=== PATIENT | male | born 1955 | race Caucasian/White ===

== ENCOUNTER 2018-06-27 07:56 | Day surgery (SDC) | payer MEDICAID ==
[~2018-06-27] VITALS: Ht 182.9 cm; Wt 65.7 kg
[~2018-06-27 07:56] MED LIST: HYDR-569 PO; UNABLE TO OBTAIN
[2018-06-27] MEDS ORDERED: NO HOME MEDS (08:44)
[2018-06-27 09:17] VITALS: BP 128/88
[2018-06-27 09:26] LABS: BASOPHILS % (AUTO) 0.4 % (0-1); EOSINOPHILS # (AUTO) 0.4 X10'3 (0-0.9); EOSINOPHILS % (AUTO) 5.9 % (0-6); HEMATOCRIT 45.5 % (42.0-52.0); HEMOGLOBIN 15.9 g/dl (14.0-17.9); LYMPHOCYTES # (AUTO) 1.4 X10'3 (1.1-4.8); LYMPHOCYTES % (AUTO) 20.9 % (21-51); MEAN CORPUSCULAR HEMOGLOBIN 34.3 PG (27.0-31.0); MEAN CORPUSCULAR HGB CONC 34.9 % (33.0-36.5); MEAN CORPUSCULAR VOLUME 98.3 FL (78-98); MONOCYTES # (AUTO) 0.6 X10'3 (0-0.9); MONOCYTES % (AUTO) 8.9 % (2-12); NEUTROPHILS # (AUTO) 4.4 X10'3 (1.8-7.7); NEUTROPHILS % (AUTO) 63.9 % (42-75); PLATELET COUNT 238 X10'3 (140-440); RED BLOOD COUNT 4.63 X10'6 (4.70-6.10); RED CELL DISTRIBUTION WIDTH 14.9 % (11.5-14.5); WHITE BLOOD COUNT 6.9 X10'3 (4.5-11.0)
[2018-06-27] MEDS ORDERED: normal saline 1000ml 1,000 ML IV SCH (09:45)
[2018-06-27 10:00] LABS: PROTHROMBIN TIME 10.4 SECONDS (9.0-12.0)
[2018-06-27] MEDS ORDERED: fentaNYL/PF 50MCG/1 ML 2ML syringe ONE (10:44)
[2018-06-27] MEDS ORDERED: midazolam 2 mg/2 ml injection ONE (10:44)
[2018-06-27] MEDS ORDERED: fentaNYL/PF 50MCG/1 ML 2ML syringe IV PRN (10:45)
[2018-06-27] MEDS ORDERED: midazolam 2 mg/2 ml injection IV PRN (10:45)
[2018-06-27 10:57] VITALS: BP 132/72
[2018-06-27 11:02] VITALS: BP 133/72
[2018-06-27 11:07] VITALS: BP 133/72
== END 2018-06-27 11:45 | disposition home or self-care (01) ==
LOC: SSTAY O 07:56
PROVIDERS: ATTEND Radiology Vascular & Interventional Radiology
DX: R91.1 Solitary pulmonary nodule (principal); J43.9 Emphysema, unspecified; G89.29 Other chronic pain; E11.40 Type 2 diabetes mellitus with diabetic neuropathy, unspecified; I10 Essential (primary) hypertension; F17.210 Nicotine dependence, cigarettes, uncomplicated; Z72.89 Other problems related to lifestyle; Z90.49 Acquired absence of other specified parts of digestive tract; Z88.5 Allergy status to narcotic agent; Z79.891 Long term (current) use of opiate analgesic; Z98.890 Other specified postprocedural states; Z83.3 Family history of diabetes mellitus; Z82.49 Family history of ischemic heart disease and other diseases of the circulatory system
CPT/HCPCS: 36415; 71250; 85025; 85610; J2250; J3010; J7030

== ENCOUNTER 2025-10-11 21:26 | Inpatient (IN) | payer MEDICARE, MEDICAID ==
[~2025-10-11] VITALS: Ht 182.9 cm; Wt 58.4 kg
[~2025-10-11 21:26] MED LIST changes: -HYDR-569 PO; +NO HOME MEDS; -UNABLE TO OBTAIN
[2025-10-11 21:28] VITALS: PULSE 115; RESP 22; O2SAT 92
--- NOTE | 2025-10-11 22:02 | Physician Documentation ---
History of Present Illness ~ Chief Complaint: Shortness of Breath Stated Complaint: SOB Time Seen by MD: 22:01 Primary Medical Doctor: Cathy Kelly MD HPI 70-year-old male, history of COPD, presenting with shortness of breath The patient tells me he has a history of COPD. He uses an inhaler at home. He is on chronic oxygen, normally uses 2 L at baseline. He reports over the past couple of days he has had increased shortness of breath. He has noticed that his oxygen levels are low and has had increase his oxygen up to 5 L, but it was not really helping. He was not able to really walk around today due to shortness of breath. He does have an increased cough that is nonproductive. No fevers. No chest pain. No abdominal symptoms. No leg swelling. Per EMS, when they arrived he was in respiratory distress with oxygen saturations at 69% on his home oxygen. He was given breathing treatments en route Medication Reconciliation Allergies: Coded Allergies: morphine (Unverified Allergy, Intermediate, 10/11/25) codeine (Unverified Allergy, Unknown, 10/11/25) Scheduled PRN albuterol inhaler (Pro-Air Inhaler), 2 PUFFS INH Q4HPRN PRN for wheezing, (Reported) Discontinued Medications Home Med List (No Home Medications), (Reported) Discontinued Reason: Other Past Medical History Past Medical History: No Pertinent History Past Surgical History: noncontributory Patient History: FHx: diabetes mellitus MOTHER FHx: heart disease MOTHER Alcohol Use: Heavy Lives with: Family Lives In: Home Review of Systems Constitutional: Denies: fever Respiratory: Reports: cough, shortness of breath Physical Exam Vital Signs: Temperature: 99.4, Source: Oral, Heart Rate: 115, Respiratory Rate: 22, BP: 124/74, Pulse Oximetry: 92, Weight: 58.400 Oxygen Flow Rate: 6.0 Physical Exam General: This is a thin middle-aged man, not in acute distress HEENT: Atraumatic, oropharynx appears dry Heart: Tachycardic, appears regular, appears sinus rhythm on the monitor Lungs: Diminished breath sounds bilateral with expiratory wheezes diffusely and a prolonged expiratory phase. Oxygen saturations 86-88%, he is on 5 L nasal cannula although the nasal cannula was not in his nose Abdomen: Soft, nondistended, nontender all quadrants Extremities: Warm and well-perfused, no significant edema Neuro: Alert and oriented Psychiatric: Calm and cooperative with exam Progress Results/Orders Results/Orders Orders - FABIANA KIMBROUGH MD Covid19 Binax Poc Result Entry (10/11/25 22:08) Chest,Two Views (10/11/25 22:08) Page Hospitalist (10/11/25 23:02) Abg (Arterial Blood Gas) (10/11/25 ) Completed Orders - FABIANA KIMBROUGH MD Chest,Two Views (10/11/25 22:08) Electrocardiogram (10/11/25 22:09) Cbc/Diff (10/11/25 22:09) CMP (10/11/25 22:09) PBNP (10/11/25 22:09) Methylprednisolone Sod Succ (Solumedrol (10/11/25 22:10) Ipratropium/Albuterol Nebule (Ipratrop/A (10/11/25 22:10) Hs Troponin I W Calculations (10/11/25 22:30) Ceftriaxone/[id number]-[id number] 1gm (Rocephin 1 (10/11/25 23:05) Azithromycin Tablet (Zithromax Tablet) (10/11/25 23:05) C-Reactive Protein (10/11/25 22:23) Hgb A1c (10/11/25 22:23) MG (10/11/25 22:23) Vital Signs 10/11/25 10/11/25 10/11/25 10/11/25 21:26 21:28 22:28 22:40 Temp 99.4 Pulse 111 115 98 87 Resp 24 B/P (MAP) 124/74 Pulse Ox 91 92 90 89 O2 Delivery Simple Mask* Nasal Cannula* Nasal Cannula* O2 Flow Rate 6.0 6 5 5 FiO2 50 40 40 10/11/25 10/11/25 10/11/25 22:46 23:00 23:30 Pulse 96 85 Resp 14 B/P (MAP) 131/58 (82) 117/65 (82) 114/63 (80) Pulse Ox 95 90 85 O2 Flow Rate 4.0 Laboratory Tests Test 10/11/25 22:23 White Blood Count 10.4 Red Blood Count 4.06 L Hemoglobin 12.7 L Hematocrit 38.8 L Mean Corpuscular Volume 95.5 Mean Corpuscular Hemoglobin 31.2 H Mean Corpuscular Hemoglobin Concent 32.6 L Red Cell Distribution Width 14.7 H Platelet Count 330 Mean Platelet Volume 7.4 Neutrophils (%) (Auto) 85.6 H Lymphocytes (%) (Auto) 4.6 L Monocytes (%) (Auto) 8.8 Eosinophils (%) (Auto) 0.9 Basophils (%) (Auto) 0.1 Neutrophils # (Auto) 8.9 H Lymphocytes # (Auto) 0.5 L Monocytes # (Auto) 0.9 Eosinophils # (Auto) 0.1 Basophils # (Auto) 0.0 CBC Comment Prothrombin Time 10.3 INR International Normalized Ratio 1.0 Activated Partial Thromboplast Time 28 D-Dimer 0.52 H D-Dimer Comment Coagulation Comments Sodium Level 142 Potassium Level 3.8 Chloride Level 98 L Carbon Dioxide Level 45.4 *H Anion Gap -1 L Blood Urea Nitrogen 12 Creatinine 0.39 L Estimated GFR/1.73 m2 > 90 BUN/Creatinine Ratio 30.8 H Glucose Level 156 H Hemoglobin A1c 5.6 Calcium Level 8.7 Magnesium Level 1.8 Total Bilirubin 0.2 Aspartate Amino Transf (AST/SGOT) 15 Alanine Aminotransferase (ALT/SGPT) 10 L Alkaline Phosphatase 72 Troponin I High Sensitivity 7 C-Reactive Protein 5.11 H Pro-B-Type Natriuretic Peptide 146 H Total Protein 7.2 Albumin 2.8 L Globulin 4.4 H Albumin/Globulin Ratio 0.6 L Procalcitonin < 0.05 Chemistry Comments EKG/XRAY/CT/US/VASC/MRI Chest X-Ray : Additional Comments I personally interpreted the x-ray, and it shows: No focal consolidation, pulmonary edema, or pneumothorax Consults/PCP Consults/PCP : Additional Comment Consult: I spoke to the internal medicine service, for admission in the hospital Medical Decision Making Additional information obtaine: other Findings Reviewed EMS report including oxygen saturations of 69% Heart Score: 2 Differential Dx:Considerations: Include: asthma, bronchitis, cardiogenic shock, CHF, COPD, dysrhythmia, myocardial infarction, pulmonary embolism, respiratory distress, sinusitis, upper resp. infection Additional Infomation The patient presents with increased shortness of breath with a history of COPD. Per his history and exam, this seems likely a COPD exacerbation. He was given steroids and breathing treatments. Chest x-ray without pneumonia. His testing is otherwise unremarkable except for an elevated CO2 level. Given his significant shortness of breath and hypoxia he will be admitted to the medicine service. Departure Impression: Primary Impression: Acute exacerbation of chronic obstructive airways disease Referrals: NO PRIMARY CARE PROVIDER (PCP) Signature Scribe Signature: sinai Attestation: FABIANA De Souza MD Oct 11, 2025 22:02
[2025-10-11 22:28] VITALS: PULSE 98; RESP 28; O2SAT 90
[2025-10-11] MEDS: ipratropium/albuterol 3ml nebule NEB ONE (22:28)
--- NOTE | 2025-10-11 22:29 | ELECTROCARDIOGRAPH REPORT ---
[facility] Test Date: 2025-10-11 Test Time: 22:26:52 Pat Name: MAG LUNA Department: [facility]-ER Patient ID: [id number] Room: [place] [address] Gender: M [employer] Programmer: : 1955 Requested By: FABIANA KIMBROUGH Order Number: [id number] Reading MD: Dr. JAJA Lima Measurements Intervals Evangeline Rate: 96 P: 81 MS: 125 QRS: 91 QRSD: 105 T: -75 QT: 468 QTc: 592 Interpretive Statements Sinus rhythm Right axis deviation RSR' in V1 or V2, probably normal variant Borderline T abnormalities, diffuse leads Prolonged QT interval Electronically Signed On 10-13-2025 15:17:[address] JAJA Lima Please click the below link to view image of tracing.
--- NOTE | 2025-10-11 22:34 | RADIOLOGY REPORT ---
CHEST RADIOGRAPH Indication: sob, cough, copd Technique: Frontal and lateral view of the chest was obtained Comparison: None FINDINGS: Lines and Tubes: None Lungs: Right lower lobe opacity may reflect atelectasis or mild pneumonia. COPD. Pleura: No effusion. No pneumothorax. Cardiomediastinal contours: Unremarkable Bones: Unremarkable IMPRESSION: 1. Right lower lobe opacity may reflect atelectasis or mild pneumonia.
[2025-10-11 22:39] LABS: MEAN PLATELET VOLUME 7.4 FL (7.4-10.4); RED CELL DISTRIBUTION WIDTH 14.7 % (11.5-14.5)
[2025-10-11 22:40] VITALS: PULSE 87; RESP 24; O2SAT 89
[2025-10-11 22:58] LABS: CREATININE 0.39 MG/DL (0.60-1.10); PRO BRAIN NATRIURETIC PEPTIDE 146 PG/ML (0-125); eCRCL 150 ML/MIN; eGFR > 90 ML/MIN
[2025-10-11 23:02] LABS: TOTAL CARBON DIOXIDE 45.4 MMOL/L (24-32)
[2025-10-11] MEDS ORDERED: magnesium sulf-water 4G/100mL 100 ML IV PRN (23:35)
[2025-10-11] MEDS ORDERED: magnesium Cl slow-release 64mg tablet PO PRN (23:35)
[2025-10-11] MEDS ORDERED: ondansetron/PF 4mg/2ml inj IV PRN (23:35)
[2025-10-11] MEDS ORDERED: HYDROcodone/acetaminophen 5mg/325mg tablet PO PRN (23:35)
[2025-10-11] MEDS ORDERED: potassium Cl 40MEQ/1/2NS 520ml 520 ML IV PRN (23:35)
[2025-10-11] MEDS ORDERED: albuterol 2.5 MG/3 ML nebule NEB PRN (23:35)
[2025-10-11] MEDS ORDERED: mag hydrox/Alum hydrox/simeth 30ml oral suspension PO PRN (23:35)
[2025-10-11] MEDS ORDERED: magnesium sulf-water 2g/50mL 50 ML IV PRN (23:35)
[2025-10-11] MEDS ORDERED: magnesium hydroxide 30ml (MOM) UD suspension PO PRN (23:35)
[2025-10-11] MEDS ORDERED: potassium Cl 20 mEq SR tablet PO PRN ×2 (23:35)
--- NOTE | 2025-10-11 23:48 | HISTORY AND PHYSICAL-Residence ---
History & Physical Providers to CC Resident Creating Document: JADA MURPHY, RES ~ History of Present Illness Primary Medical Doctor: Cathy Kelly MD Reason for Admit\Complaint: COPD exacerbation, prolonged QTC History of Present Illness This is a 70-year-old male with a history of hypertension, COPD, heavy and active tobacco use presents to the ER with a chief complaint of shortness of breath since this morning. Patient endorses increased cough, dyspnea, oxygen requirement and whitish phlegm. Patient endorses that he has about 90 pack-year smoking history and extensive history of COPD. He continues to smoke about three cigarettes a day although he has significantly cut down his smoking. Patient uses 2 L of oxygen at home at baseline, however this morning he felt extremely short of breath and required 5 L of oxygen and still was feeling short of breath, hence decided to come to the ED. During his ED stay his saturations were in the low 80s despite being on 5 L of oxygen. He denies any chest pain, swelling in the legs, abdominal pain, nausea, vomiting, diarrhea. He ambulates using a scooter or a walker and lives his sister. Patient endorses that he can walk up to 100 ft before he gets short breath. He currently uses some Ellipta inhaler and nebulizers at home. ED course: Patient received one dose of Solu-Medrol 125 mg and breathing treatments with DuoNebs. Chest x-ray showed right basilar opacity suspicious for pneumonia and COPD lungs. Patient is being admitted for management of COPD exacerbation and pneumonia. Allergies: Coded Allergies: morphine (Unverified Allergy, Intermediate, 10/11/25) codeine (Unverified Allergy, Unknown, 10/11/25) Home Medications Home Medications Active Reported No Home Medications (Home Med List) Each Past Medical History Past Medical History Hypertension, COPD, tobacco use Past Surgical History Surgical History Comment Hip surgery Family History Family History: FHx: diabetes mellitus MOTHER FHx: heart disease MOTHER Past Social History Social History Comment 90 pack-year smoking history (smoked about 2-3 packs of cigarettes for 30 years), occasional alcohol use, denies any drug use. Lives at home with sister. Does not remember details of PCP Alcohol Use: Heavy Lives with: Family Lives In: Home ROS ROS Constitutional: No fever, chills, dizziness, weakness, weight gain or loss Eyes: No pain, erythema, discharge, blurring of vision ENT: No sore throat, epistaxis, tinnitus Cardiovascular: Shortness of breath, wheezing, orthopnea No palpitations, syncope, lower extremity edema, paroxysmal nocturnal dyspnea Respiratory: Increased whitish sputum No hemoptysis Gastrointestinal: Normal appetite. No nausea, vomiting, diarrhea, constipation, hematemesis, abdominal pain, bloating, melena or fresh blood Genitourinary: No frequency, urgency, nocturia, hematuria or dysuria Musculoskeletal: No arthralgias or myalgias Integumentary: No change in skin, hair, nails. No swelling, bruising, abrasions Neurologic: No headache, neck pain, numbness or tingling of the extremities, weakness Psychiatric: No delusions, depression, loss of interest in normal activity or change in sleep pattern, hallucinations, suicidal ideations Endocrine: No fatigue, weakness, polydipsia, polyuria, change in appetite, heat or cold intolerance, sweating, dry skin Hematological: No bleeding, petechiae, bruising Allergies: No asthma or urticaria Constitutional: Denies: fever Respiratory: Reports: cough, shortness of breath Exam Vitals: Vital Signs Date Time Temp Pulse Resp B/P (MAP) Pulse Ox O2 Delivery O2 Flow Rate FiO2 10/11/25 22:46 22 131/58 (82) 95 4.0 10/11/25 22:40 87 Nasal Cannula* 40 10/11/25 21:26 99.4 General: General: Thin built, poor hygiene. Awake , alert, and oriented x4, resting comfortably in the bed, in no acute distress . HEENT: Atraumatic, normocephalic, EOMI, anicteric sclera B; pink conjunctiva; PERRLA, normal oropharynx, moist oral and nasal mucosa. Tympanic membrane , nose , throat clear. Neck: Trachea midline. Supple, full range of motion, no JVD, bruit , hepatojugular reflex , lymphadenopathy or masses, or other lesions Cardiac: Regular rhythm, regular rate no murmurs, rubs, or gallops. Normal S1 and S2, no S3 noticed. PMI is normal. Respiratory: Decreased breath sounds bilaterally, severe wheezing, tachypnea; crackles in the right lower lobe lung base. Chest wall is symmetric and without deformity. No signs of trauma. Chest wall is nontender. No signs of respiratory distress. Gastrointestinal: Abdomen symmetric, non-distended, soft, non-tender, normal bowel sounds x4 quadrant, normoactive, no hepatosplenomegaly , no masses , no bruit, no flank pain bilaterally. No voluntary guarding, rebound, or rigidity. No tenderness to percussion. No pulsatile masses. Equal femoral pulses. No Baker's sign or McBurney point tenderness. Back; no CVA tenderness bilaterally, no deformities. Neck and back are without deformity as well. No tenderness noted on palpation of the spinous processes. Spinous processes are midline. Cervical, thoracic, and lumbar paraspinal muscles are not tender and are without spasm. : normal external genitalia, without lesions, swelling, masses or tenderness. Musculoskeletal: Extremities, normal range of motion, non-tender, muscle strength 5/5 x 4. Negative Homans signs bilaterally on lower extremity. Distal pulses full symmetrical, no clubbing, cyanosis , edema. Neurological: Speech is clear, alert, and oriented x 4. No motor or sensory deficit, deep tendon reflexes normal, cerebellar intact. Cranial nerves II-XII intact. Psych: Alert and or appropriate, normal affect. Vascular: Good distal pulses, which are equal x4; capillary refill less than 2 seconds. Skin: Warm, dry, no pallor, no rash or petechiae. Diagnostic Data Last Recorded Lab Results: 10/11/25222210/11/252222 Advance Care Planning Advanced Care plannin - 30 Minutes (I spent a total of 17 minutes on reviewing various resuscitative measures/ ACP with the patient at the time of admission. The patient has decided on a full code status) Additional Plan Acute hypoxemic respiratory failure Acute on chronic COPD exacerbation Respiratory acidosis with compensatory metabolic alkalosis Community-acquired pneumonia, covering Gram-positive, Gram-negative and atypical organisms ? Lung mass Tachypnea with respiratory rate of 25, tachycardia with heart rate of 112 at admission. Chest x-ray shows Right lower lobe opacity may reflect atelectasis or mild pneumonia. Patient has extensive wheezing on auscultation ABG shows pCO2 of 67.8 with normal pH and compensated bicarb of 37.8 suggestive of chronic COPD. No leukocytosis/sirs criteria Follow up with the ESR, lactic acid, procalcitonin.CRP elevated at 5.11 Patient received one dose of Solu-Medrol 125 mg, ceftriaxone and Zithromax in the ED. Avoid Zithromax in view of prolonged QTC. Continue antibiotics ceftriaxone and doxycycline, steroids Solu-Medrol 40 mg q.6 hours and IV fluids NS at the rate of 100 mL/hour. RT evaluation and treatment. Breathing treatments with Duo nebs q.4 PRN and albuterol q.2h p.r.n Wells score low. D-dimer is slightly elevated at 0.52. Follow up with CTA chest to rule out PE. Gentle hydration for pneumonia with NS at the rate of 100 mL/hour. Patient underwent a left lower lobe mass biopsy, obtain pathology reports in the a.m. Prolonged QTC EKG shows corrected QTC of 592ms, Q-waves and T-wave inversions in multiple leads. Avoid macrolides including azithromycin, fluoroquinolones, Zofran, other QT prolonging antiarrhythmic, antipsychotic medications. Troponins are within normal limits, no chest pain Hypertension Currently normotensive. Continue home meds after med rec Mild normocytic normochromic anemia Moderate protein calorie malnutrition Continue monitoring CBC, ensure enlive t.i.d. Code Status: Full code DVT Prophylaxis: Heparin Analgesia/Sedation: Tylenol p.r.n. Lines/Tubes: PIV Gi Prophylaxis: None Nutrition: Regular diet PT: Yes Prognosis: Guarded Disposition: Admit to PCU with telemetry monitoring Jada Robertson MD Internal Medicine Resident PGY-2 Patient evaluated using HIPPA complaint AV device Agree with plan as discussed with the resident Brody Carballo MD Date of Service: Oct 11, 2025 Billing Provider: BRODY CARBALLO MD, DEEPIKA BANDI, RES Oct 11, 2025 23:48 BRODY CARBALLO MD Oct 12, 2025 04:51
[2025-10-11] MEDS: CefTRIAXone/D5W-Rocephin 1gm 50 ML IV ONE (23:58)
[2025-10-12] VITALS (13 sets, daily range): BP systolic 116–130; BP diastolic 59–74; PULSE 83–110; RESP 16–28; TEMP 97.3–98.4; O2SAT 88–95
[2025-10-12] MEDS: normal saline 1000ml 1,000 ML IV SCH (00:01)
[2025-10-12 00:11] LABS: ABG BASE EXCESS 10.0 mmol/L (-2.0-3.0); ABG HCO3 37.8 mmol/L (21.0-28.0); ABG OXYGEN SATURATION 88.6 % (94.0-98.0); ABG PCO2 (T) 67.8 mmHg (35.0-48.0); ABG PH (T) 7.365 (7.350-7.450); ABG PO2 (T) 57.4 mmHg (83.0-108.0); FCOHb 1.1 % (0.5-1.5); FHHb 11.2 % (0.0-5.0); FIO2 36.0 mmHg/%; FMetHb 0.3 % (0.0-1.5); FO2Hb 87.4 % (94.0-98.0); MODE NASAL CANNULA; PATIENT TEMPERATURE 37.2; TOTAL HEMOGLOBIN 12.8 G/dl (13.5-17.5)
[2025-10-12 00:12] LABS: APTT 28 SECONDS (22-32); INR 1.0 INR
[2025-10-12] MEDS ORDERED: ALBU8HFA INH (00:45)
[2025-10-12 01:34] LABS: MEAN PLATELET VOLUME 7.4 FL (7.4-10.4); RED CELL DISTRIBUTION WIDTH 14.8 % (11.5-14.5)
[2025-10-12 01:47] LABS: CHOL/HDL RATIO 2.6 (0.00-4.99); CREATININE 0.38 MG/DL (0.60-1.10); LDL CHOLESTEROL 73 MG/DL (50-100); eCRCL 154 ML/MIN; eGFR > 90 ML/MIN
[2025-10-12 01:52] LABS: TOTAL CARBON DIOXIDE 42.9 MMOL/L (24-32)
[2025-10-12] MEDS: methylPREDNISolone sod succ/PF 40mg inj. IV SCH (02:00)
[2025-10-12] MEDS: K and/or MAG REPLACEMENT MC SCH (07:47)
[2025-10-12] MEDS: doxycycline 100mg/NS 100mL PB 100 ML IV SCH (08:00)
[2025-10-12] MEDS: docusate sod 100mg capsule PO SCH (08:01)
[2025-10-12] MEDS: heparin, porcine 5000 units/ml vial SQ SCH (08:01)
[2025-10-12] MEDS: Ensure Enlive - 237ML PO SCH (08:09)
[2025-10-12] MEDS: nicotine 14mg patch - 24hr TD SCH (08:15)
--- NOTE | 2025-10-12 12:10 | PROGRESS NOTE ---
Daily Progress Note Providers to CC Today, less shortness of breath less cough ~ Central Line/PICC still needed: No Lloyd-Non Protocol Lloyd Indications Met/Not Met: F/C Indications Not Met Antibiotic Timeout Antibiotic Ordered?: Yes MRSA Education MRSA Education Provided to pt: Yes Subjective As above Objective Vital Signs Date Time Temp Pulse Resp B/P (MAP) Pulse Ox O2 Delivery O2 Flow Rate FiO2 10/12/25 08:00 20 91 Nasal Cannula 3.5 40 10/12/25 06:30 75 10/12/25 02:05 98.4 120/64 (82) Vital signs, stable ,afebrile. Pulse Oximetry reflects adequate oxygenation. 4 L oxygen nasal cannula General: well developed, well nourished. Awake , alert, and oriented x4, resting comfortably in the bed, in no acute distress . Skin: Warm, dry, no pallor, no rash or petechiae. HEENT: Atraumatic, normocephalic, EOMI, anicteric sclera B; pink conjunctiva; PERRLA, normal oropharynx, moist oral and nasal mucosa. Tympanic membrane , nose , throat clear. Neck: Trachea midline. Supple, full range of motion, no JVD, bruit , hepatojugular reflex , lymphadenopathy or masses, or other lesions Cardiac: Regular rhythm, regular rate no murmurs, rubs, or gallops. Normal S1 and S2, no S3 noticed. PMI is normal. Respiratory: Equal breath sounds bilaterally, no tachypnea; lungs clear to auscultation bilaterally, no wheezing ,rub or rales, or crackles. Chest wall is symmetric and without deformity. No signs of trauma. Chest wall is nontender. No signs of respiratory distress. Resonance is normal upon percussion bilaterally. Gastrointestinal: Abdomen symmetric, non-distended, soft, non-tender, normal bowel sounds x4 quadrant, normoactive, no hepatosplenomegaly , no masses , no bruit, no flank pain bilaterally. No voluntary guarding, rebound, or rigidity. No tenderness to percussion. No pulsatile masses. Equal femoral pulses. No Baker's sign or McBurney point tenderness. Back; no CVA tenderness bilaterally, no deformities. Neck and back are without deformity as well. No tenderness noted on palpation of the spinous processes. Spinous processes are midline. Cervical, thoracic, and lumbar paraspinal muscles are not tender and are without spasm. : normal external genitalia, without lesions, swelling, masses or tenderness. Musculoskeletal: Extremities, normal range of motion, non-tender, muscle strength 5/5 x 4. Negative Homans signs bilaterally on lower extremity. Distal pulses full symmetrical, no clubbing, cyanosis , edema. Neurological: Speech is clear, alert, and oriented x 4. No motor or sensory deficit, deep tendon reflexes normal, cerebellar intact. Cranial nerves II-XII intact. Psych: Alert and or appropriate, normal affect. Vascular: Good distal pulses, which are equal x4; capillary refill less than 2 seconds. Lymphatic, no lymphadenopathy. Result Diagram: 10/12/25 0106 10/12/25 0106 Coagulation Studies Laboratory Tests Test 10/11/25 22:23 Prothrombin Time 10.3 SECONDS (9.0-12.0) INR International Normalized Ratio 1.0 INR Activated Partial Thromboplast Time 28 SECONDS (22-32) D-Dimer 0.52 MG/L FEU (0-0.50) H D-Dimer Comment Coagulation Comments Problem\Assessment\Plan Plan Acute hypoxemic respiratory failure Acute on chronic COPD exacerbation Respiratory acidosis with compensatory metabolic alkalosis Community-acquired pneumonia, covering Gram-positive, Gram-negative and atypical organisms ? Lung mass Tachypnea with respiratory rate of 25, tachycardia with heart rate of 112 at admission. Chest x-ray shows Right lower lobe opacity may reflect atelectasis or mild pneumonia. Patient has extensive wheezing on auscultation ABG shows pCO2 of 67.8 with normal pH and compensated bicarb of 37.8 suggestive of chronic COPD. No leukocytosis/sirs criteria Follow up with the ESR, lactic acid, procalcitonin.CRP elevated at 5.11 Patient received one dose of Solu-Medrol 125 mg, ceftriaxone and Zithromax in the ED. Avoid Zithromax in view of prolonged QTC. Continue antibiotics ceftriaxone and doxycycline, steroids Solu-Medrol 40 mg q.6 hours and IV fluids NS at the rate of 100 mL/hour. RT evaluation and treatment. Breathing treatments with Duo nebs q.4 PRN and albuterol q.2h p.r.n Wells score low. D-dimer is slightly elevated at 0.52. Follow up with CTA chest to rule out PE. Gentle hydration for pneumonia with NS at the rate of 100 mL/hour. Patient underwent a left lower lobe mass biopsy, obtain pathology reports in the a.m. Prolonged QTC EKG shows corrected QTC of 592ms, Q-waves and T-wave inversions in multiple leads. Avoid macrolides including azithromycin, fluoroquinolones, Zofran, other QT prolonging antiarrhythmic, antipsychotic medications. Troponins are within normal limits, no chest pain Hypertension Currently normotensive. Continue home meds after med rec Mild normocytic normochromic anemia Moderate protein calorie malnutrition Continue monitoring CBC, ensure enlive t.i.d. Code Status: Full code DVT Prophylaxis: Heparin Analgesia/Sedation: Tylenol p.r.n. Lines/Tubes: PIV Gi Prophylaxis: None Nutrition: Regular diet PT: Yes Prognosis: Guarded Sepsis Screening Reassessment Date: Oct 12, 2025 Date of Service: Oct 12, 2025 Billing Provider: LIZA SOLIS MD Common Visit Codes: [id number] INP/OBS CARE(HIGH) LIZA SOLIS MD Oct 12, 2025 12:10
--- NOTE | 2025-10-12 13:28 | RADIOLOGY REPORT ---
Indication: sob Technique: CT axial images of the chest are obtained with intravenous contrast per CT angiogram protocol. Coronal and sagittal reformats were obtained. Radiation Dose Information: CTDI volume is 7 mGy. Dose-length product is 309 mGy*cm Comparison: None FINDINGS: No filling defect within the main left right pulmonary arteries. Segmental and subsegmental branches suboptimally characterized. The trachea is patent. Plugging of the bilateral lower lobe bronchi No pneumothorax. Pulmonary emphysematous changes. Right lower lobe airspace consolidationm left upper lobe lingular segment nodule solid density measuring 7 mm. Left Lower lobe airspace consolidation left lower lobe calcified nodule me asuring 8 mm. Heart normal in size. Coronary artery calcification disease. Right hilar lymph node measuring 1.7 cm. Subcarinal lymph node measuring 1.1 cm. No supraclavicular lymphadenopathy. Right axillary lymph nodes measuring up to 11 mm. Left axillary lymph nodes measuring up to 15 mm. No aggressive osseous process. [id number] thoracic degenerative disc disease. IMPRESSION: No evidence for Large pulmonary embolism. Bilateral lower lobe airspace consolidation. Plugging of the bilateral lower lobe bronchi which can be secondary to infection/pneumonia, aspiration. Left upper lobe lingular segment pulmonary nodule measuring 7 mm. Recommend follow-up per Fleischner society criteria. Pulmonary emphysematous changes. Mediastinal / hilar, axillary lymphadenopathy which can be secondary to infectious, inflammatory, neoplastic etiologies. Correlate clinically. Other findings as described.
[2025-10-12] MEDS: ipratropium/albuterol 3ml nebule NEB PRN (15:02)
[2025-10-12] MEDS: CefTRIAXone/D5W-Rocephin 1gm 50 ML IV SCH (22:29)
[2025-10-12] MEDS ORDERED: azithromycin/NS 500mg/250ml 250 ML IV SCH (23:00)
[2025-10-13] VITALS (11 sets, daily range): BP systolic 121–146; BP diastolic 62–87; PULSE 87–98; RESP 16–30; TEMP 97.8–98.3; O2SAT 89–96
[2025-10-13 06:28] LABS: MEAN PLATELET VOLUME 8.0 FL (7.4-10.4); RED CELL DISTRIBUTION WIDTH 14.9 % (11.5-14.5)
[2025-10-13 06:49] LABS: CREATININE 0.40 MG/DL (0.60-1.10); eCRCL 146 ML/MIN; eGFR > 90 ML/MIN
[2025-10-13 06:58] LABS: TOTAL CARBON DIOXIDE 40.7 MMOL/L (24-32)
[2025-10-13 10:19] LABS: ABG BASE EXCESS 12.2 mmol/L (-2.0-3.0); ABG HCO3 40.0 mmol/L (21.0-28.0); ABG OXYGEN SATURATION 86.6 % (94.0-98.0); ABG PCO2 (T) 69.1 mmHg (35.0-48.0); ABG PH (T) 7.380 (7.350-7.450); ABG PO2 (T) 52.8 mmHg (83.0-108.0); ALLEN'S TEST POSITIVE; FCOHb 1.1 % (0.5-1.5); FHHb 13.2 % (0.0-5.0); FIO2 36.0 mmHg/%; FLOW 4 L/min; FMetHb 0.3 % (0.0-1.5); FO2Hb 85.4 % (94.0-98.0); MODE NASAL CANNULA; PATIENT TEMPERATURE 36.8; TOTAL HEMOGLOBIN 12.0 G/dl (13.5-17.5)
--- NOTE | 2025-10-13 15:28 | CARDIOLOGY REPORT ---
APPROVED REPORT EXAM: Comprehensive 2D, Doppler, and color-flow Echocardiogram. Patient Location: 3009 Blood Pressure: 120/64 mmHg Heart Rate: 98 bpm Rhythm: NSR Indications SOB COPD Bed Bugs No director of surgery No previous echo 2D Dimensions LA Diam 4.2 cm IVSd 1.0 (0.7-1.1cm) LVDd 5.2 cm PWd 1.0 (0.7-1.1cm) IVSs 1.4 (0.8-1.2cm) LVDs 3.1 (2.5-4.0cm) Aortic Root(2D) 3.5 cm PWs 1.3 (0.8-1.2cm) LVOT Diameter 2.36 (1.8-2.4cm) LVEF(%) 69.3 (>50%) IVC 19.52 mm FS (%) 39.2 % SV 88.4 ml CO 9.4 L/min M-Mode Dimensions MV EPSS 0.7 (<0.5cm) Aortic Valve AoV Peak Marv. 172.2 cm/s AoV VTI 32.1 cm AO Peak GR. 11.9 mmHg AO Mean GR. 5 mmHg LVOT VTI 19.40 cm LVOT Peak Marv. 107.0 cm/s TERESA(VTI)/BSA 2.65 cm2/m2 TERESA (VTI) 2.65 cm2 AV DI 0.60 % Mitral Valve MV E Velocity 72.3 cm/s MV Peak Gr. 3 mmHg MV DECEL TIME 204 ms MV A Velocity 85.9 cm/s MV PHT 64 ms E/A Ratio 0.8 MVA (PHT) 3.44 cm2 MV VMax 85.7 cm/s TDI Medial E' P. V 10.90 cm/s E/Medial E' 6.6 Tricuspid Valve TR P. Velocity 235 cm/s RAP ESTIMATE 10 mmHg TR Peak Gr. 22 mmHg RVSP 32 mmHg Pulmonary Vein S1 Velocity 37.4 cm/s D2 Velocity 24.1 cm/s PVa Velocity 33.6 cm/s PVa Duration 68 msec LEFT VENTRICLE Normal LV size and wall thickness. Overall systolic function is normal. Overall LVEF is 65%. RIGHT VENTRICLE RV appears mildly dilated with normal contractility. RVSP is estimated at 32 mmHG. ATRIA Left atrium is mildly dilated. AORTIC VALVE Trileaflet AV appears sclerotic without stenosis. No insufficiency. MITRAL VALVE MV is thickened with mild annular calcification and no stenosis. Trace mitral regurgitation. TRICUSPID VALVE The tricuspid valve is normal in structure. Trace tricuspid regurgitation. PULMONIC VALVE The pulmonary valve is normal in structure. Trace pulmonic insufficiency. GREAT VESSELS The aortic root is normal in size. The IVC is normal in size and collapses >50% with inspiration. PERICARDIUM There is no pericardial effusion. Other Information Study Quality: Fair Conclusion Overall LVEF is 65%. Normal LV size and wall thickness. Overall systolic function is normal. RV appears mildly dilated with normal contractility. RVSP is estimated at 32 mmHG. Trileaflet AV appears sclerotic without stenosis. No insufficiency. Trace mitral regurgitation. Trace tricuspid regurgitation. Trace pulmonic insufficiency. There is no pericardial effusion.
--- NOTE | 2025-10-13 17:29 | PROGRESS NOTE ---
Daily Progress Note Providers to CC Chief complaint, continue shortness of breath cough mild improvement noticed ~ Central Line/PICC still needed: No Lloyd-Non Protocol Lloyd Indications Met/Not Met: F/C Indications Not Met Antibiotic Timeout Antibiotic Ordered?: Yes MRSA Education MRSA Education Provided to pt: Yes Subjective As above Objective Vital Signs Date Time Temp Pulse Resp B/P (MAP) Pulse Ox O2 Delivery O2 Flow Rate FiO2 10/13/25 15:00 98.1 94 22 133/68 (89) 92 Nasal Cannula 6.0 10/13/25 10:25 44 Vital signs, stable ,afebrile. Pulse Oximetry reflects adequate oxygenation. On 6 L oxygen nasal cannula General: well developed, well nourished. Awake , alert, and oriented x4, resting comfortably in the bed, in no acute distress . Skin: Warm, dry, no pallor, no rash or petechiae. HEENT: Atraumatic, normocephalic, EOMI, anicteric sclera B; pink conjunctiva; PERRLA, normal oropharynx, moist oral and nasal mucosa. Tympanic membrane , nose , throat clear. Neck: Trachea midline. Supple, full range of motion, no JVD, bruit , hepatojugular reflex , lymphadenopathy or masses, or other lesions Cardiac: Regular rhythm, regular rate no murmurs, rubs, or gallops. Normal S1 and S2, no S3 noticed. PMI is normal. Respiratory: Equal breath sounds bilaterally, no tachypnea; lungs clear to auscultation bilaterally, no wheezing ,rub or rales, or crackles. Chest wall is symmetric and without deformity. No signs of trauma. Chest wall is nontender. No signs of respiratory distress. Resonance is normal upon percussion bilaterally. Gastrointestinal: Abdomen symmetric, non-distended, soft, non-tender, normal bowel sounds x4 quadrant, normoactive, no hepatosplenomegaly , no masses , no bruit, no flank pain bilaterally. No voluntary guarding, rebound, or rigidity. No tenderness to percussion. No pulsatile masses. Equal femoral pulses. No Baker's sign or McBurney point tenderness. Back; no CVA tenderness bilaterally, no deformities. Neck and back are without deformity as well. No tenderness noted on palpation of the spinous processes. Spinous processes are midline. Cervical, thoracic, and lumbar paraspinal muscles are not tender and are without spasm. : normal external genitalia, without lesions, swelling, masses or tenderness. Musculoskeletal: Extremities, normal range of motion, non-tender, muscle strength 5/5 x 4. Negative Homans signs bilaterally on lower extremity. Distal pulses full symmetrical, no clubbing, cyanosis , edema. Neurological: Speech is clear, alert, and oriented x 4. No motor or sensory deficit, deep tendon reflexes normal, cerebellar intact. Cranial nerves II-XII intact. Psych: Alert and or appropriate, normal affect. Vascular: Good distal pulses, which are equal x4; capillary refill less than 2 seconds. Lymphatic, no lymphadenopathy. Result Diagram: 10/13/25 0523 10/13/25 0523 Coagulation Studies Laboratory Tests Test 10/11/25 22:23 Prothrombin Time 10.3 SECONDS (9.0-12.0) INR International Normalized Ratio 1.0 INR Activated Partial Thromboplast Time 28 SECONDS (22-32) D-Dimer 0.52 MG/L FEU (0-0.50) H D-Dimer Comment Coagulation Comments Problem\Assessment\Plan Plan Acute hypoxemic respiratory failure Acute on chronic COPD exacerbation Respiratory acidosis with compensatory metabolic alkalosis Community-acquired pneumonia, covering Gram-positive, Gram-negative and atypical organisms ? Lung mass Tachypnea with respiratory rate of 25, tachycardia with heart rate of 112 at admission. Chest x-ray shows Right lower lobe opacity may reflect atelectasis or mild pneumonia. Patient has extensive wheezing on auscultation ABG shows pCO2 of 67.8 with normal pH and compensated bicarb of 37.8 suggestive of chronic COPD. No leukocytosis/sirs criteria Follow up with the ESR, lactic acid, procalcitonin.CRP elevated at 5.11 Patient received one dose of Solu-Medrol 125 mg, ceftriaxone and Zithromax in the ED. Avoid Zithromax in view of prolonged QTC. Continue antibiotics ceftriaxone and doxycycline, steroids Solu-Medrol 40 mg q.6 hours and IV fluids NS at the rate of 100 mL/hour. RT evaluation and treatment. Breathing treatments with Duo nebs q.4 PRN and albuterol q.2h p.r.n Wells score low. D-dimer is slightly elevated at 0.52. Follow up with CTA chest to rule out PE. Gentle hydration for pneumonia with NS at the rate of 100 mL/hour. Patient underwent a left lower lobe mass biopsy, obtain pathology reports in the a.m. Prolonged QTC EKG shows corrected QTC of 592ms, Q-waves and T-wave inversions in multiple leads. Avoid macrolides including azithromycin, fluoroquinolones, Zofran, other QT prolonging antiarrhythmic, antipsychotic medications. Troponins are within normal limits, no chest pain Hypertension Currently normotensive. Continue home meds after med rec Mild normocytic normochromic anemia Moderate protein calorie malnutrition Continue monitoring CBC, ensure enlive t.i.d. Code Status: Full code DVT Prophylaxis: Heparin Analgesia/Sedation: Tylenol p.r.n. Lines/Tubes: PIV Gi Prophylaxis: None Nutrition: Regular diet PT: Yes Prognosis: Guarded Date of Service: Oct 13, 2025 Billing Provider: LIZA SOLIS MD Common Visit Codes: [id number] INP/OBS CARE(HIGH) LIZA SOLIS MD Oct 13, 2025 17:29
[2025-10-13 21:30] LABS: ABG BASE EXCESS 14.2 mmol/L (-2.0-3.0); ABG HCO3 41.7 mmol/L (21.0-28.0); ABG OXYGEN SATURATION 82.6 % (94.0-98.0); ABG PCO2 (T) 66.1 mmHg (35.0-48.0); ABG PH (T) 7.415 (7.350-7.450); ABG PO2 (T) 44.8 mmHg (83.0-108.0); FCOHb 1.3 % (0.5-1.5); FHHb 17.1 % (0.0-5.0); FIO2 40.0 mmHg/%; FMetHb 0.3 % (0.0-1.5); FO2Hb 81.3 % (94.0-98.0); MODE NASAL CANNULA; PATIENT TEMPERATURE 36.5; TOTAL HEMOGLOBIN 12.1 G/dl (13.5-17.5)
[2025-10-14] VITALS (9 sets, daily range): BP systolic 124–152; BP diastolic 70–76; PULSE 80–98; RESP 16–25; TEMP 97.1–98.2; O2SAT 91–99
[2025-10-14 06:42] LABS: MEAN PLATELET VOLUME 7.4 FL (7.4-10.4); RED CELL DISTRIBUTION WIDTH 14.7 % (11.5-14.5)
[2025-10-14 07:02] LABS: CREATININE 0.35 MG/DL (0.60-1.10); eCRCL 167 ML/MIN; eGFR > 90 ML/MIN
[2025-10-14 07:34] LABS: TOTAL CARBON DIOXIDE 42.8 MMOL/L (24-32)
--- NOTE | 2025-10-14 11:41 | CONSULTATION REPORT - RESIDENT ---
Consult Providers to CC Resident Creating Document: KIRA CLAROSRAMESH History of Present Illness Reason for Admit\Complaint: Mucus plugging History of Present Illness The patient is a 70-year-old male with past medical history of hypertension, COPD, nicotine use disorder, presented to the ED with shortness of breath. He is an active smoker, uses 2 L of oxygen at baseline. He is currently being treated for COPD exacerbation and community-acquired pneumonia. On ceftriaxone and doxycycline. Also on steroids. CTA chest ruled out pulmonary embolism. However, it showed mucus plugging in bilateral lower lobe bronchi which is why pulmonology was consulted. On reviewing the images, there was no significant mucus plugging that would mandate bronchoscopy. The patient also has a 7 mm left upper lobe lingular segment pulmonary nodule which was reviewed. Allergies: Coded Allergies: morphine (Unverified Allergy, Intermediate, 10/11/25) codeine (Unverified Allergy, Unknown, 10/11/25) Home Medications Home Medications Active Reported Pro-Air Inhaler (Albuterol) 8.5 Gm Inhaler 2 Puffs INH Q4HPRN PRN 30 Days Past Medical History Past Medical History Hypertension COPD Nicotine use disorder Past Surgical History Surgical History Comment Hip surgery Family History Family History: FHx: diabetes mellitus MOTHER FHx: heart disease MOTHER Exam Vitals: Vital Signs Date Time Temp Pulse Resp B/P (MAP) Pulse Ox O2 Delivery O2 Flow Rate FiO2 10/14/25 11:00 97.2 91 22 140/76 (97) 94 Venturi Mask 40 10/13/25 22:03 5.0 General: General: Awake and Alert, no acute distress. HEENT: Conjunctiva pink, Sclera clear, Mucus Membranes moist. Neck: Supple without masses and tenderness. Resp: Coarse breath sounds and expiratory wheezes bilaterally. Heart: Regular Rate and rhythm, normal S1 and S2 without murmur, rub or gallop. Abdomen: Soft and non tender no organomegaly Extremities: No cyanosis,clubbing or edema. Skin: Warm and Dry. Diagnostic Data Last Recorded Lab Results: 10/14/25 0617 10/14/25 0617 Diagnostic Data: Laboratory Tests Test 10/11/25 22:23 Prothrombin Time 10.3 SECONDS (9.0-12.0) INR International Normalized Ratio 1.0 INR Activated Partial Thromboplast Time 28 SECONDS (22-32) D-Dimer 0.52 MG/L FEU (0-0.50) H D-Dimer Comment Coagulation Comments Additional Plan A 70-year-old male with past medical history of COPD, hypertension, nicotine use disorder, presented to the ED with shortness of breath. Pulmonology services consulted for mucus plugging seen in CTA chest. Plan: Bilateral lower lobe bronchi mucus plugging COPD exacerbation Bilateral lower lobe pneumonia CTA chest reviewed. There was no significant mucus plugging that was evident which would mandate bronchoscopy for clearance. Advice bronchodilators treatment along with chest physiotherapy. Continue antibiotics for pneumonia. Left upper lobe pulmonary nodule The patient has a 7 mm left upper lobe lingular segment pulmonary nodule. Recommend repeat CT chest in three months and follow up with Dr. Rajput outpatient. Hypertension Nicotine use disorder Management as per hospitalist. Kira Claros MD Internal Medicine Resident, PGY-2 The patient was seen, examined and discussed with the attending physician, Dr. Rajput. Date of Service: Oct 14, 2025 Billing Provider: CAITIE RAJPUT MD,KIRA STEINER, RES Oct 14, 2025 11:41
--- NOTE | 2025-10-14 18:45 | PROGRESS NOTE ---
Daily Progress Note Providers to CC ~ complaint of shortness of breath cough Central Line/PICC still needed: No Lloyd-Non Protocol Lloyd Indications Met/Not Met: F/C Indications Not Met Antibiotic Timeout Antibiotic Ordered?: Yes MRSA Education MRSA Education Provided to pt: Yes Subjective As above Objective Vital Signs Date Time Temp Pulse Resp B/P (MAP) Pulse Ox O2 Delivery O2 Flow Rate FiO2 10/14/25 15:00 97.1 93 20 138/76 (96) 99 Venturi Mask 40 10/13/25 22:03 5.0 Vital signs, stable ,afebrile. Pulse Oximetry reflects adequate oxygenation. On 5 L oxygen nasal cannula General: well developed, well nourished. Awake , alert, and oriented x4, resting comfortably in the bed, in no acute distress . Skin: Warm, dry, no pallor, no rash or petechiae. HEENT: Atraumatic, normocephalic, EOMI, anicteric sclera B; pink conjunctiva; PERRLA, normal oropharynx, moist oral and nasal mucosa. Tympanic membrane , nose , throat clear. Neck: Trachea midline. Supple, full range of motion, no JVD, bruit , hepatojugular reflex , lymphadenopathy or masses, or other lesions Cardiac: Regular rhythm, regular rate no murmurs, rubs, or gallops. Normal S1 and S2, no S3 noticed. PMI is normal. Respiratory: Equal breath sounds bilaterally, no tachypnea; lungs clear to auscultation bilaterally, no wheezing ,rub or rales, or crackles. Chest wall is symmetric and without deformity. No signs of trauma. Chest wall is nontender. No signs of respiratory distress. Resonance is normal upon percussion bilaterally. Gastrointestinal: Abdomen symmetric, non-distended, soft, non-tender, normal bowel sounds x4 quadrant, normoactive, no hepatosplenomegaly , no masses , no bruit, no flank pain bilaterally. No voluntary guarding, rebound, or rigidity. No tenderness to percussion. No pulsatile masses. Equal femoral pulses. No Baker's sign or McBurney point tenderness. Back; no CVA tenderness bilaterally, no deformities. Neck and back are without deformity as well. No tenderness noted on palpation of the spinous processes. Spinous processes are midline. Cervical, thoracic, and lumbar paraspinal muscles are not tender and are without spasm. : normal external genitalia, without lesions, swelling, masses or tenderness. Musculoskeletal: Extremities, normal range of motion, non-tender, muscle strength 5/5 x 4. Negative Homans signs bilaterally on lower extremity. Distal pulses full symmetrical, no clubbing, cyanosis , edema. Neurological: Speech is clear, alert, and oriented x 4. No motor or sensory deficit, deep tendon reflexes normal, cerebellar intact. Cranial nerves II-XII intact. Psych: Alert and or appropriate, normal affect. Vascular: Good distal pulses, which are equal x4; capillary refill less than 2 seconds. Lymphatic, no lymphadenopathy. Result Diagram: 10/14/2517 10/14/25 0617 Coagulation Studies Laboratory Tests Test 10/11/25 22:23 Prothrombin Time 10.3 SECONDS (9.0-12.0) INR International Normalized Ratio 1.0 INR Activated Partial Thromboplast Time 28 SECONDS (22-32) D-Dimer 0.52 MG/L FEU (0-0.50) H D-Dimer Comment Coagulation Comments Problem\Assessment\Plan Assessment/Plan Acute hypoxemic respiratory failure Acute on chronic COPD exacerbation Respiratory acidosis with compensatory metabolic alkalosis Community-acquired pneumonia, covering Gram-positive, Gram-negative and atypical organisms Appreciate ICU Dr. And team assistance and expertise Tachypnea with respiratory rate of 25, tachycardia with heart rate of 112 at admission. Chest x-ray shows Right lower lobe opacity may reflect atelectasis or mild pneumonia. Patient has extensive wheezing on auscultation ABG shows pCO2 of 67.8 with normal pH and compensated bicarb of 37.8 suggestive of chronic COPD. No leukocytosis/sirs criteria Follow up with the ESR, lactic acid, procalcitonin.CRP elevated at 5.11 Patient received one dose of Solu-Medrol 125 mg, ceftriaxone and Zithromax in the ED. Avoid Zithromax in view of prolonged QTC. Continue antibiotics ceftriaxone and doxycycline, steroids Solu-Medrol 40 mg q.6 hours and IV fluids NS at the rate of 100 mL/hour. RT evaluation and treatment. Breathing treatments with Duo nebs q.4 PRN and albuterol q.2h p.r.n Wells score low. D-dimer is slightly elevated at 0.52. Follow up with CTA chest to rule out PE. Gentle hydration for pneumonia with NS at the rate of 100 mL/hour. Patient underwent a left lower lobe mass biopsy, obtain pathology reports in the a.m. Prolonged QTC EKG shows corrected QTC of 592ms, Q-waves and T-wave inversions in multiple leads. Avoid macrolides including azithromycin, fluoroquinolones, Zofran, other QT prolonging antiarrhythmic, antipsychotic medications. Troponins are within normal limits, no chest pain Hypertension Currently normotensive. Continue home meds after med rec Mild normocytic normochromic anemia Moderate protein calorie malnutrition Continue monitoring CBC, ensure enlive t.i.d. Code Status: Full code DVT Prophylaxis: Heparin Analgesia/Sedation: Tylenol p.r.n. Lines/Tubes: PIV Gi Prophylaxis: None Nutrition: Regular diet PT: Yes Prognosis: Guarded Sepsis Screening Reassessment Date: Oct 14, 2025 Date of Service: Oct 14, 2025 Billing Provider: LIZA SOLIS MD Common Visit Codes: [id number] INP/OBS CARE(HIGH) LIZA SOLIS MD Oct 14, 2025 18:45
[2025-10-15] VITALS (9 sets, daily range): BP systolic 120–155; BP diastolic 67–77; PULSE 71–102; RESP 17–38; TEMP 97.3–98.4; O2SAT 88–98
[2025-10-15 06:52] LABS: MEAN PLATELET VOLUME 7.5 FL (7.4-10.4); RED CELL DISTRIBUTION WIDTH 14.9 % (11.5-14.5)
[2025-10-15 07:17] LABS: CREATININE 0.37 MG/DL (0.60-1.10); eCRCL 158 ML/MIN; eGFR > 90 ML/MIN
[2025-10-15 07:47] LABS: TOTAL CARBON DIOXIDE 48.0 MMOL/L (24-32)
[2025-10-15 09:35] LABS: ABG BASE EXCESS 11.6 mmol/L (-2.0-3.0); ABG HCO3 40.0 mmol/L (21.0-28.0); ABG OXYGEN SATURATION 89.2 % (94.0-98.0); ABG PCO2 (T) 70.1 mmHg (35.0-48.0); ABG PH (T) 7.373 (7.350-7.450); ABG PO2 (T) 58.5 mmHg (83.0-108.0); FCOHb 1.2 % (0.5-1.5); FHHb 10.6 % (0.0-5.0); FIO2 40.0 mmHg/%; FLOW 15 L/min; FMetHb 0.3 % (0.0-1.5); FO2Hb 87.9 % (94.0-98.0); MODE MASK - VENTI; PATIENT TEMPERATURE 36.7; TOTAL HEMOGLOBIN 13.6 G/dl (13.5-17.5)
--- NOTE | 2025-10-15 09:38 | RADIOLOGY REPORT ---
EXAM: DI CHEST,SINGLE VIEW Indication: pneumonia, respiratory changes Technique: Single frontal view of the chest was obtained Comparison: CT CTA CHEST PE W/ IV CONTRAST on DOS: 10/12/25, DI CHEST,TWO VIEWS on DOS: 10/11/25 FINDINGS: Lines and Tubes: None Lungs: No focal consolidation. Pleura: No effusion. No pneumothorax. Cardiomediastinal contours: Unremarkable Bones: No acute osseous abnormality. IMPRESSION: No acute cardiopulmonary disease.
--- NOTE | 2025-10-15 14:52 | PROGRESS NOTE ---
Daily Progress Note Providers to CC Complaint of shortness of breath cough ~ Central Line/PICC still needed: No Lloyd-Non Protocol Lloyd Indications Met/Not Met: F/C Indications Not Met Antibiotic Timeout Antibiotic Ordered?: Yes MRSA Education MRSA Education Provided to pt: Yes Subjective As above Objective Vital Signs Date Time Temp Pulse Resp B/P (MAP) Pulse Ox O2 Delivery O2 Flow Rate FiO2 10/15/25 11:00 98.4 102 38 120/67 (84) 88 Venturi Mask 40 10/15/25 08:42 5 Vital signs, stable ,afebrile. Pulse Oximetry reflects adequate oxygenation. On 5 L oxygen nasal cannula General: well developed, well nourished. Awake , alert, and oriented x4, resting comfortably in the bed, in no acute distress . Skin: Warm, dry, no pallor, no rash or petechiae. HEENT: Atraumatic, normocephalic, EOMI, anicteric sclera B; pink conjunctiva; PERRLA, normal oropharynx, moist oral and nasal mucosa. Tympanic membrane , nose , throat clear. Neck: Trachea midline. Supple, full range of motion, no JVD, bruit , hepatojugular reflex , lymphadenopathy or masses, or other lesions Cardiac: Regular rhythm, regular rate no murmurs, rubs, or gallops. Normal S1 and S2, no S3 noticed. PMI is normal. Respiratory: Equal breath sounds bilaterally, associated with scattered rales and wheezing, and patient is tachypnea; no crackles. Chest wall is symmetric and without deformity. No signs of trauma. Chest wall is nontender. No signs of respiratory distress. Resonance is normal upon percussion bilaterally. Gastrointestinal: Abdomen symmetric, non-distended, soft, non-tender, normal bowel sounds x4 quadrant, normoactive, no hepatosplenomegaly , no masses , no bruit, no flank pain bilaterally. No voluntary guarding, rebound, or rigidity. No tenderness to percussion. No pulsatile masses. Equal femoral pulses. No Baker's sign or McBurney point tenderness. Back; no CVA tenderness bilaterally, no deformities. Neck and back are without deformity as well. No tenderness noted on palpation of the spinous processes. Spinous processes are midline. Cervical, thoracic, and lumbar paraspinal muscles are not tender and are without spasm. : normal external genitalia, without lesions, swelling, masses or tenderness. Musculoskeletal: Extremities, normal range of motion, non-tender, muscle strength 5/5 x 4. Negative Homans signs bilaterally on lower extremity. Distal pulses full symmetrical, no clubbing, cyanosis , edema. Neurological: Speech is clear, alert, and oriented x 4. No motor or sensory deficit, deep tendon reflexes normal, cerebellar intact. Cranial nerves II-XII intact. Psych: Alert and or appropriate, normal affect. Vascular: Good distal pulses, which are equal x4; capillary refill less than 2 seconds. Lymphatic, no lymphadenopathy. Result Diagram: 10/15/25 0632 10/15/25 0632 Coagulation Studies Laboratory Tests Test 10/11/25 22:23 Prothrombin Time 10.3 SECONDS (9.0-12.0) INR International Normalized Ratio 1.0 INR Activated Partial Thromboplast Time 28 SECONDS (22-32) D-Dimer 0.52 MG/L FEU (0-0.50) H D-Dimer Comment Coagulation Comments Problem\Assessment\Plan Assessment/Plan Acute hypoxemic respiratory failure Acute on chronic COPD exacerbation Respiratory acidosis with compensatory metabolic alkalosis Community-acquired pneumonia, covering Gram-positive, Gram-negative and atypical organisms Appreciate ICU Dr. And team assistance and expertise Tachypnea with respiratory rate of 25, tachycardia with heart rate of 112 at admission. Chest x-ray shows Right lower lobe opacity may reflect atelectasis or mild pneumonia. Patient has extensive wheezing on auscultation ABG shows pCO2 of 67.8 with normal pH and compensated bicarb of 37.8 suggestive of chronic COPD. No leukocytosis/sirs criteria Follow up with the ESR, lactic acid, procalcitonin.CRP elevated at 5.11 Patient received one dose of Solu-Medrol 125 mg, ceftriaxone and Zithromax in the ED. Avoid Zithromax in view of prolonged QTC. Continue antibiotics ceftriaxone and doxycycline, steroids Solu-Medrol 40 mg q.6 hours and IV fluids NS at the rate of 100 mL/hour. RT evaluation and treatment. Breathing treatments with Duo nebs q.4 PRN and albuterol q.2h p.r.n Wells score low. D-dimer is slightly elevated at 0.52. Follow up with CTA chest to rule out PE. Gentle hydration for pneumonia with NS at the rate of 100 mL/hour. Patient underwent a left lower lobe mass biopsy, obtain pathology reports in the a.m. Prolonged QTC EKG shows corrected QTC of 592ms, Q-waves and T-wave inversions in multiple leads. Avoid macrolides including azithromycin, fluoroquinolones, Zofran, other QT prolonging antiarrhythmic, antipsychotic medications. Troponins are within normal limits, no chest pain Hypertension Currently normotensive. Continue home meds after med rec Mild normocytic normochromic anemia Moderate protein calorie malnutrition Continue monitoring CBC, ensure enlive t.i.d. Code Status: Full code DVT Prophylaxis: Heparin Analgesia/Sedation: Tylenol p.r.n. Lines/Tubes: PIV Gi Prophylaxis: None Nutrition: Regular diet PT: Yes Prognosis: Guarded Date of Service: Oct 15, 2025 Billing Provider: LIZA SOLIS MD Common Visit Codes: [id number] INP/OBS CARE(HIGH) LIZA SOLIS MD Oct 15, 2025 14:52
[2025-10-16 02:00] VITALS: BP 128/72; PULSE 94; RESP 29; TEMP 97.8; O2SAT 97
[2025-10-16 06:00] VITALS: BP 116/56; PULSE 94; RESP 33; TEMP 97.5; O2SAT 86
[2025-10-16 07:13] LABS: MEAN PLATELET VOLUME 7.9 FL (7.4-10.4); RED CELL DISTRIBUTION WIDTH 14.8 % (11.5-14.5)
[2025-10-16 07:38] LABS: CREATININE 0.23 MG/DL (0.60-1.10); eCRCL 254 ML/MIN; eGFR > 90 ML/MIN
[2025-10-16 07:53] LABS: TOTAL CARBON DIOXIDE 45.9 MMOL/L (24-32)
[2025-10-16 08:00] VITALS: RESP 30; O2SAT 96
[2025-10-16 11:00] VITALS: BP 119/57; PULSE 102; RESP 27; TEMP 96.9; O2SAT 93
--- NOTE | 2025-10-16 14:30 | DISCHARGE SUMMARY ---
Discharge Summary Providers to CC ~ Discharge Summary Admission Diagnosis: COPD EXACERBATION PROLONGED QTC Hospital Course DATE OF ADMISSION: 10/11/2025 DATE OF DISCHARGE: 10/16/2025 Discharge Diagnosis\\Comment: Acute worsening of chronic respiratory failure, acute exacerbation of chronic COPD, bilateral lower lobe pneumonia, left upper lobe pulmonary nodule, hypertension, nicotine use disorder Operations\\Procedures: None Consultants: Dr Rajput lime kiln worker helper Complications: None Condition on DC: Stable Continued Medications: albuterol inhaler (Pro-Air Inhaler) 8.5 Gm Inhaler 2 PUFFS INH Q4HPRN PRN for wheezing for 30 Days, #18 GM Discharge Summary: [facility] under the supervision of NICOLE Marion MD with the following HPI:"This is a 70-year-old male with a history of hypertension, COPD, heavy and active tobacco use presents to the ER with a chief complaint of shortness of breath since this morning. Patient endorses increased cough, dyspnea, oxygen requirement and whitish phlegm. Patient endorses that he has about 90 pack-year smoking history and extensive history of COPD. He continues to smoke about three cigarettes a day although he has significantly cut down his smoking. Patient uses 2 L of oxygen at home at baseline, however this morning he felt extremely short of breath and required 5 L of oxygen and still was feeling short of breath, hence decided to come to the ED. During his ED stay his saturations were in the low 80s despite being on 5 L of oxygen. He denies any chest pain, swelling in the legs, abdominal pain, nausea, vomiting, diarrhea. He ambulates using a scooter or a walker and lives his sister. Patient endorses that he can walk up to 100 ft before he gets short breath. He currently uses some Ellipta inhaler and nebulizers at home. ED course: Patient received one dose of Solu-Medrol 125 mg and breathing treatments with DuoNebs. Chest x-ray showed right basilar opacity suspicious for pneumonia and COPD lungs. Patient is being admitted for management of COPD exacerbation and pneumonia."The patient has oxygen demand did increase and the patient is currently on 15 L of oxygen via Ventimask the patient is on IV Rocephin and IV doxycycline for antibiotics to treat bilateral pneumonia. A CTA of the chest ruled out pulmonary embolism however there was bilateral pneumonia appreciated and plugging of the bilateral lower lobe bronchi. The patient is on PRN DuoNeb and PRN albuterol nebs as well as scheduled Solu-Medrol The patient had a pulmonary consult with Dr. Rajput lime kiln worker helper who recommended against a bronchoscopy the patient also has a 7 mm left upper lobe lingular nodule and we will need a repeat CT scan of the chest. Dr. Rajput has a agreed to follow the patient. The patient has a echocardiogram which demonstrated LVEF of 65% there were no significant findings appreciated with the other than mild pulmonary hypertension with an RVSP of 35 mm Hg. The patient is on a nicotine patch to treat his cravings due to his tobacco use disorder. The patient has a history of hypertension however the majority of his blood pressure readings were in the normal range and his blood pressure this morning was 119/56. The patient is currently not on any blood pressure medications. Gen. No acute distress alert and oriented 4 Lungs coarse breath sounds in all listening blankenship bilaterally. Heart normal sinus rhythm no murmurs rubs or clicks noted Abdomen soft nontender bowel sounds are normoactive Lower extremities no clubbing cyanosis, nor edema appreciated bilaterally The patient is medically stable to be transferred to an LTAC on 10/16/2025 The patient was seen and evaluated on day of discharge. Time spent on discharge 35 minutes *Problems/Diagnosis: (1) Acute exacerbation of chronic obstructive airways disease Status: Acute Total Time Spent on D/C: > 30 Minutes Date of Service: Oct 16, 2025 Billing Provider: IMTIAZ JUAREZ DO Common Visit Codes: 66949-IMZ/OBS DISCH DAY >30min IMTIAZ JUAREZ DO Oct 16, 2025 14:30
== END 2025-10-16 15:34 | DRG 871 ==
LOC: ER 21:26 → ED HOLD 23:41 → PCU 3S 10-12 02:05
PROVIDERS: ADMIT Internal Medicine; ATTEND Family Medicine
PROC: B32T1ZZ Computerized Tomography (CT Scan) of Left Pulmonary Artery using Low Osmolar Contrast (ICD-10-PCS; principal; 2025-10-11)
PROC: B3201ZZ Computerized Tomography (CT Scan) of Thoracic Aorta using Low Osmolar Contrast (ICD-10-PCS; 2025-10-11)
PROC: B32S1ZZ Computerized Tomography (CT Scan) of Right Pulmonary Artery using Low Osmolar Contrast (ICD-10-PCS; 2025-10-11)
PROC: BB241ZZ Computerized Tomography (CT Scan) of Bilateral Lungs using Low Osmolar Contrast (ICD-10-PCS; 2025-10-11)
PROC: BB2 Imaging, Respiratory System, Computerized Tomography (CT Scan) (ICD-10-PCS; 2025-10-11)
DX: A41.9 Sepsis, unspecified organism (principal); J15.69 Pneumonia due to other Gram-negative bacteria; J15.9 Unspecified bacterial pneumonia; J96.01 Acute respiratory failure with hypoxia; T17.890A Other foreign object in other parts of respiratory tract causing asphyxiation, initial encounter; E87.4 Mixed disorder of acid-base balance; I27.20 Pulmonary hypertension, unspecified; E44.0 Moderate protein-calorie malnutrition; J44.0 Chronic obstructive pulmonary disease with (acute) lower respiratory infection; I10 Essential (primary) hypertension; D64.9 Anemia, unspecified; J44.1 Chronic obstructive pulmonary disease with (acute) exacerbation; Z68.1 Body mass index [BMI] 19.9 or less, adult; Z20.822 Contact with and (suspected) exposure to COVID-19; F17.210 Nicotine dependence, cigarettes, uncomplicated; R91.1 Solitary pulmonary nodule; Z88.5 Allergy status to narcotic agent; Y92.89 Other specified places as the place of occurrence of the external cause
CPT/HCPCS: 36415; 36600; 71045; 71046; 71275; 80053; 80061; 82803; 83036; 83605; 83735; 83880; 84145; 84484; 85018; 85025; 85379; 85610; 85651; 85730; 86140; 87040; 87081; 87811; 93005; 93306; 94640; 94760; 96365; 96375; 97161; 97530; 99285; A6213; G0378; J0696; J1271; J1644; J2919; J7030; J7040; Q9967